=== PATIENT | female | born 2000 | race Caucasian/White ===

== ENCOUNTER 2024-01-19 18:45 | Emergency (ER) | payer OTHER ==
[~2024-01-19] VITALS: Ht 167.6 cm; Wt 64.6 kg
[2024-01-19 18:59] LABS: BASOPHILS 0.8 % (0-2); EOSINOPHILS 0.4 % (0-6); HEMATOCRIT 37.1 % (35.0-50.0); HEMOGLOBIN 12.5 g/dL (12.0-18.0); LYMPHOCYTES 17.3 % (24-44); MCH 30.6 (27-36); MCHC 33.8 g/dl (30-36); MCV 90.4 fl (81-99); MONOCYTES 7.2 % (0-12); NEUTROPHILS 74.3 % (39-80); PLATELET COUNT 216 K/uL (140-440); RDW 13.4 (10.5-15.0)
[2024-01-19 19:21] LABS: ACETAMINOPHEN 0 ug/mL (10-30); ALBUMIN 3.2 g/dL (3.4-5.0); ALBUMIN/GLOBULIN RATIO 0.94 (1.1-2.4); ALCOHOL, MEDICAL <3 ng/dL (<3); ALKALINE PHOSPHATASE 74 U/L (46-116); ALT (SGPT) 14 U/L (14-59); ANION GAP 9.3 (7-21); AST (SGOT) 12 U/L (15-37); BILIRUBIN, TOTAL 0.1 ng/dL (0.2-1.0); BUN/CREATININE RATIO 8.57 (6.0-28.6); CALCIUM 8.3 mg/dL (8.5-10.1); CARBON DIOXIDE 27 mmol/L (21-32); CHLORIDE 105 mmol/L (98-107); GLOMERULAR FILTRATION RATE,EST 125 mL/min (>60); POTASSIUM 3.3 mmol/L (3.5-5.1); PROTEIN, TOTAL 6.6 g/dL (6.4-8.2); TSH, 3RD GENERATION 1.648 uIU/mL (0.358-3.740); UREA NITROGEN 6 mg/dL (7-18)
[2024-01-19] MEDS ORDERED: NALOXONE 4 MG NASAL SPRAY #2 HOME.PACK NAS ONE (20:45)
[2024-01-19 21:45] VITALS: BP 101/67
--- NOTE | 2024-01-20 10:43 | EKG ---
[facility] [address] [place], [place] [address] Signed Sinus bradycardia with sinus arrhythmia Otherwise normal ECG No previous ECGs available Confirmed by Bernabe Lima MD ([id number]) on 01/20/2024 10:43:48 AM Electronically Signed By: BERNABE LIMA 01/20/24 1043 PATIENT NAME: SHERI MONGE Electrocardiogram DATE OF : [birth year] PHYSICIAN: BERNABE LIMA REPORT #: [id number] REPORT IS CONFIDENTIAL AND NOT TO BE RELEASED WITHOUT AUTHORIZATION
== END 2024-01-19 21:45 | disposition home or self-care (01) ==
LOC: ED 18:45
PROVIDERS: Family Medicine
DX: T40.411A Poisoning by fentanyl or fentanyl analogs, accidental (unintentional), initial encounter (principal)
CPT/HCPCS: 36415; 80053; 80307; 84443; 84703; 85025; 93005; 93010; 99284; G0480; J3490

== ENCOUNTER 2024-06-13 10:18 | Emergency (ER) | payer OTHER ==
[~2024-06-13] VITALS: Ht 167.6 cm; Wt 68.5 kg
[2024-06-13 10:59] LABS: BILIRUBIN, URINE NEGATIVE (negative); BLOOD/HGB, URINE MODERATE (Negative); KETONE, URINE NEGATIVE (Negative); LEUK ESTERASE, URINE TRACE (negative); NITRITE, URINE NEGATIVE (negative)
[2024-06-13 11:08] LABS: BACTERIA, URINE NONE SEEN /hpf (negative); CASTS, URINE NONE SEEN \\lpf; COLLECTION TYPE, URINE CLEAN CATCH; CRYSTALS, URINE AMORPHOUS PHOSPH 3+ (0-1+); EPITHELIAL CELLS, URINE OCCASIONAL /lpf (0-1+); REFLEX CULTURE, URINE No (No)
[2024-06-13 11:11] LABS: BASOPHILS 1.4 % (0-2); EOSINOPHILS 1.2 % (0-6); HEMATOCRIT 39.1 % (35.0-50.0); HEMOGLOBIN 13.7 g/dL (12.0-18.0); LYMPHOCYTES 21.2 % (24-44); MCV 91.4 fl (81-99); MONOCYTES 10.5 % (0-12); NEUTROPHILS 65.7 % (39-80); PLATELET COUNT 311 K/uL (140-440); RBC 4.28 M/ul (4.3-5.7); RDW 12.4 (10.5-15.0)
[2024-06-13 11:27] LABS: ALBUMIN 3.5 g/dL (3.4-5.0); ALBUMIN/GLOBULIN RATIO 0.9 (1.1-2.4); BILIRUBIN, TOTAL 0.1 ng/dL (0.2-1.0); BUN/CREATININE RATIO 13.09 (6.0-28.6); CALCIUM 8.8 mg/dL (8.5-10.1); CREATININE, SERUM 0.84 mg/dL (0.55-1.02); PROTEIN, TOTAL 7.4 g/dL (6.4-8.2)
[2024-06-13] MEDS ORDERED: IBU600 MG PO (12:01)
[2024-06-13 12:10] VITALS: BP 126/74
== END 2024-06-13 12:10 | disposition home or self-care (01) ==
LOC: ED 10:18
PROVIDERS: Emergency Medicine
DX: N93.9 Abnormal uterine and vaginal bleeding, unspecified (principal); Z59.00 Homelessness unspecified
CPT/HCPCS: 36415; 80053; 81001; 84703; 85025; 99284

== ENCOUNTER 2024-07-05 03:41 | Emergency (ER) | payer OTHER ==
[~2024-07-05] VITALS: Ht 167.6 cm; Wt 65.8 kg
[~2024-07-05 03:41] MED LIST: IBU600 MG PO
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
[2024-07-05] MEDS ORDERED: levonorgestreL 1.5 MG TAB PO ONE (04:15)
[2024-07-05] MEDS ORDERED: LACTATED RINGER'S 1,000 ML IV ONE (04:15)
[2024-07-05 04:23] LABS: BASOPHILS 0.4 % (0-2); EOSINOPHILS 0.3 % (0-6); HEMATOCRIT 43.9 % (35.0-50.0); HEMOGLOBIN 15.2 g/dL (12.0-18.0); MCH 31.5 (27-36); MCHC 34.7 g/dl (30-36); MONOCYTES 6.9 % (0-12); NEUTROPHILS 80.4 % (39-80); PLATELET COUNT 370 K/uL (140-440); RBC 4.83 M/ul (4.3-5.7); RDW 12.2 (10.5-15.0)
[2024-07-05 04:38] LABS: ALBUMIN 3.9 g/dL (3.4-5.0); ALBUMIN/GLOBULIN RATIO 0.91 (1.1-2.4); ANION GAP 19.1 (7-21); BILIRUBIN, TOTAL 1.2 ng/dL (0.2-1.0); BUN/CREATININE RATIO 32.2 (6.0-28.6); CALCIUM 8.5 mg/dL (8.5-10.1); CREATININE, SERUM 1.18 mg/dL (0.55-1.02); POTASSIUM 4.1 mmol/L (3.5-5.1); PROTEIN, TOTAL 8.2 g/dL (6.4-8.2)
[2024-07-05] MEDS ORDERED: HYDROCODON-ACE1 EA10 PO (05:49)
[2024-07-05] MEDS ORDERED: ONDANSETRON ODT8 MG PO (05:49)
[2024-07-05] MEDS ORDERED: HYDROCODONE BIT/ACETAMINOPHEN 5/325 MG 1 TAB HOME.PACK PO ONE (06:00)
[2024-07-05] MEDS ORDERED: ONDANSETRON 4 MG HOME.PACK SL ONE (06:00)
[2024-07-05 06:20] VITALS: BP 129/80
== END 2024-07-05 06:20 | disposition home or self-care (01) ==
LOC: ED 03:41
PROVIDERS: Family Medicine
DX: S16.1XXA Strain of muscle, fascia and tendon at neck level, initial encounter (principal); S70.02XA Contusion of left hip, initial encounter; S70.01XA Contusion of right hip, initial encounter; S00.12XA Contusion of left eyelid and periocular area, initial encounter; S00.11XA Contusion of right eyelid and periocular area, initial encounter; S00.33XA Contusion of nose, initial encounter; S00.83XA Contusion of other part of head, initial encounter; S40.022A Contusion of left upper arm, initial encounter; S40.021A Contusion of right upper arm, initial encounter; S80.02XA Contusion of left knee, initial encounter; S80.01XA Contusion of right knee, initial encounter; S80.12XA Contusion of left lower leg, initial encounter; S80.11XA Contusion of right lower leg, initial encounter; T79.6XXA Traumatic ischemia of muscle, initial encounter; Y04.8XXA Assault by other bodily force, initial encounter
CPT/HCPCS: 36415; 70450; 70486; 72125; 72192; 80053; 81001; 82553; 84703; 85025; 96360; 99284-25; A9270; J7121

== ENCOUNTER 2024-07-05 19:07 | Emergency (ER) | payer OTHER ==
[~2024-07-05] VITALS: Ht 167.6 cm; Wt 68.9 kg
[~2024-07-05 19:07] MED LIST changes: +HYDROCODON-ACE1 EA10 PO; +ONDANSETRON ODT8 MG PO
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
[2024-07-05 21:30] VITALS: BP 126/78
== END 2024-07-05 21:30 | disposition home or self-care (01) ==
LOC: ED 19:07
DX: T74.21XA Adult sexual abuse, confirmed, initial encounter (principal); S80.12XA Contusion of left lower leg, initial encounter; S80.11XA Contusion of right lower leg, initial encounter; Y09 Assault by unspecified means
CPT/HCPCS: 99284

== ENCOUNTER 2024-07-07 13:13 | Emergency (ER) | payer OTHER ==
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
[2024-07-07] MEDS ORDERED: metroNIDAZOLE 250 MG TAB PO ONE (14:30)
[2024-07-07] MEDS ORDERED: IBUPROFEN 600 MG TAB PO ONE (14:30)
[2024-07-07] MEDS ORDERED: DOXYCYCLINE HYCLATE 100 MG CAP PO ONE (14:30)
[2024-07-07] MEDS ORDERED: metroNIDAZOLE 500 MG HOME.PACK PO ONE (14:30)
[2024-07-07] MEDS ORDERED: ONDANSETRON 4 MG TAB ODT SL ONE (14:30)
[2024-07-07] MEDS ORDERED: HYDROCODONE/ACETA 5/325 TAB PO ONE (14:30)
[2024-07-07] MEDS ORDERED: DOXYCYCLINE HYCLATE 100 MG HOME.PACK PO ONE (14:30)
[2024-07-07 14:59] LABS: BASOPHILS 0.8 % (0-2); EOSINOPHILS 0.3 % (0-6); HEMATOCRIT 38.5 % (35.0-50.0); HEMOGLOBIN 13.3 g/dL (12.0-18.0); LYMPHOCYTES 11.9 % (24-44); MCH 31.9 (27-36); MCHC 34.5 g/dl (30-36); MCV 92.5 fl (81-99); MONOCYTES 4.6 % (0-12); NEUTROPHILS 82.4 % (39-80); PLATELET COUNT 306 K/uL (140-440); RBC 4.16 M/ul (4.3-5.7); RDW 12.2 (10.5-15.0)
[2024-07-07 15:13] LABS: ALBUMIN 3.7 g/dL (3.4-5.0); ALBUMIN/GLOBULIN RATIO 0.95 (1.1-2.4); ANION GAP 12.9 (7-21); BILIRUBIN, TOTAL 0.3 ng/dL (0.2-1.0); BUN/CREATININE RATIO 16.17 (6.0-28.6); CALCIUM 8.6 mg/dL (8.5-10.1); CREATININE, SERUM 0.68 mg/dL (0.55-1.02); POTASSIUM 3.9 mmol/L (3.5-5.1); PROTEIN, TOTAL 7.6 g/dL (6.4-8.2)
[2024-07-07 16:51] VITALS: BP 140/95
[2024-07-09 08:38] LABS: HEPATITIS BE ANTIBODY Negative (Negative)
[2024-07-09 10:09] LABS: HEPATITIS B SURFACE ANTIBODY 23.33 IU/L (())
== END 2024-07-07 16:50 | disposition home or self-care (01) ==
LOC: ED 13:13
PROVIDERS: Emergency Medicine
DX: T74.11XA Adult physical abuse, confirmed, initial encounter (principal); M25.572 Pain in left ankle and joints of left foot; M79.652 Pain in left thigh; Z79.899 Other long term (current) drug therapy
CPT/HCPCS: 36415; 73552; 73610; 80053; 84703; 85025; 86706; 86707; 99285; A9270

== ENCOUNTER 2024-11-24 00:42 | Emergency (ER) | payer OTHER ==
[~2024-11-24] VITALS: Ht 167.6 cm; Wt 73.2 kg
[2024-11-24] MEDS ORDERED: PENICILLIN V P500 MG PO (01:05)
[2024-11-24] MEDS ORDERED: PENICILLIN V POTASSIUM 500 MG HOME.PACK PO ONE (01:15)
[2024-11-24 01:26] VITALS: BP 128/91
== END 2024-11-24 01:26 | disposition home or self-care (01) ==
LOC: ED 00:42
DX: K08.89 Other specified disorders of teeth and supporting structures (principal)
CPT/HCPCS: 99282

== ENCOUNTER 2024-12-24 05:09 | Emergency (ER) | payer OTHER ==
[~2024-12-24] VITALS: Ht 167.6 cm; Wt 73.2 kg
[~2024-12-24 05:09] MED LIST changes: +PENICILLIN V P500 MG PO
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
[2024-12-24] MEDS ORDERED: CEPHALEXIN500 M1 PO (05:23)
[2024-12-24 05:30] VITALS: BP 138/89
[2024-12-24] MEDS ORDERED: TRAMADOL HCL 50 MG HOME.PACK PO ONE (05:30)
[2024-12-24] MEDS ORDERED: CEPHALEXIN MONOHYDRATE 500 MG HOME.PACK PO ONE (05:30)
== END 2024-12-24 05:31 | disposition home or self-care (01) ==
LOC: ED 05:09
DX: K02.9 Dental caries, unspecified (principal)
CPT/HCPCS: 99282; A9270